=== PATIENT | male | born 1985 | race Caucasian/White ===

== ENCOUNTER 2020-02-23 11:48 | Emergency (ER) | payer OTHER ==
[2020-02-23] MEDS ORDERED: ASPIRIN 81 MG CHEW (CHILDREN'S ASA) PO ONE (12:00)
[2020-02-23] MEDS ORDERED: NS IV 1000 ML 1,000 ML ONE (12:10)
[2020-02-23 12:12] LABS: HEMOGLOBIN 14.6 G/DL (13.3-17.7); MEAN CORPUSCULAR HEMOGLOBIN 29 PG (25-34)
[2020-02-23 12:13] LABS: BASOPHILS % (AUTO) 0 % (0-10); EOSINOPHILS # (AUTO) 0.3 10^3/uL (0.0-0.3); EOSINOPHILS % (AUTO) 2 % (0-10); HEMATOCRIT 43 % (40-54); LYMPHOCYTES # (AUTO) 2.1 X 10^3 (1.0-4.0); LYMPHOCYTES % (AUTO) 14 % (12-44); MEAN CORPUSCULAR HGB CONC 34 G/DL (32-36); MEAN CORPUSCULAR VOLUME 84 FL (80-99); MEAN PLATELET VOLUME 11.4 FL (7.4-10.4); MONOCYTES % (AUTO) 7 % (0-12); NEUTROPHILS # (AUTO) 11.6 X 10^3 (1.8-7.8); NEUTROPHILS % (AUTO) 77 % (42-75); PLATELET COUNT 265 10^3/uL (130-400); RED CELL DISTRIBUTION WIDTH 12.6 % (10.0-14.5)
[2020-02-23] MEDS ORDERED: ACETAMINOPHEN 500 MG TAB (TYLENOL) PO STA (12:27)
[2020-02-23] MEDS: ACETAMINOPHEN 500 MG TAB (TYLENOL) ONE ×2 (12:28→12:29)
[2020-02-23] MEDS ORDERED: NS IV 1000 ML 1,000 ML IV SCH ×2 (12:30)
--- NOTE | 2020-02-23 12:33 | ED General ---
General Chief Complaint: Chest Pain Stated Complaint: CHEST PAIN Nursing Triage Note: Pt arrived by private vehicle with mother and child. Pt has chief complaint of chest pain, cough, shortness of breath. Also, the patient states he has had chills. Chest pain started around 100 when he was sitting at his desk eating his lunch. Pt stated pain is a 6-7, stabbing pain on right side of chest that goes into his back. Pt has history of asthma, so has chronic shortness of breath. Pt stated he has never had chest pain like this before. Pt is alert and oriented x 4. Pt was wheeled from vehicle to room 5 through decon room. Pt's vital signs were taken, IV started, EKG done. Pt has fever of 100.4. Nursing Sepsis Screen: Possible Severe Sepsis Risk Source of Information: Patient History of Present Illness Date Seen by Provider: Feb 23, 2020 Time Seen by Provider: 11:54 Initial Comments 34-year-old male presenting with complaints of right-sided chest pain and cough and shortness of breath. He states that the chest pain came on around 11 AM when he was trying to eat lunch at his desk at work. He reports the pain is around 6 or 7. It's a stabbing pain on the right side of his chest. He states that the shortness of breath is chronic and he thinks is related to his history of asthma. He denies having the chest pain before. He was having some chills since yesterday. When his temperature was checked here in the ED it was 100.5 Fahrenheit. He denies any recent travel. He denies any known ill contacts. He has no nausea or vomiting. He has no abdominal pain. Allergies and Home Medications Allergies Coded Allergies: No Known Drug Allergies (Unverified , 02/23/20) Home Medications Albuterol Sulfate 1 Puff Puff, 2 PUFF IH Q6H PRN for SHORTNESS OF BREATH 1 PUFF = 90 MCG Prescribed by: IVETH CRESPO on 02/23/20 1333 Azithromycin 250 Mg Tablet, 500 MG PO DAILY Prescribed by: IVETH CRESPO on 02/23/20 1333 Patient Home Medication List Home Medication List Reviewed: Yes Review of Systems Review of Systems Constitutional: chills, fever (found here in the ED) EENTM: no symptoms reported Respiratory: cough (non productive), short of breath (chronic with his asthma) Cardiovascular: see HPI, chest pain (right sided sharp and radiating to his back) Gastrointestinal: no symptoms reported Genitourinary: no symptoms reported Musculoskeletal: no symptoms reported Skin: no symptoms reported Psychiatric/Neurological: No Symptoms Reported Hematologic/Lymphatic: No Symptoms Reported Past [id number] Hx Past Med/Social Hx: Reviewed Nursing Past Med/Soc Hx Patient Social History Alcohol Use: Occasionally Uses Recreational Drug Use: No Smoking Status: Current Everyday Smoker Type Used: Cigarettes 2nd Hand Smoke Exposure: Yes Recent Foreign Travel: No Contact w/Someone Who Travel: No Recent Infectious Disease Expo: No Recent Hopitalizations: No Physical Abuse: No Sexual Abuse: No Mistreated: No Fear: No Seasonal Allergies Seasonal Allergies: Yes Past Medical History Surgeries: Yes Appendectomy Respiratory: Yes Asthma Cardiac: No Neurological: No Genitourinary: No Gastrointestinal: No Musculoskeletal: No Endocrine: No HEENT: No Cancer: No Psychosocial: No Integumentary: No Blood Disorders: No Physical Exam Vital Signs Vital Signs - First Documented 02/23/20 11:50 Temp 38.0 Pulse 102 Resp 28 B/P (MAP) 125/89 (101) Pulse Ox 95 O2 Delivery Room Air Capillary Refill : Less Than 3 Seconds Height, Weight, BMI Height: '" Weight: lbs. oz. kg; BMI Method: General Appearance: No Apparent Distress, WD/WN HEENT: PERRL/EOMI, Pharynx Normal Neck: Full Range of Motion, Normal Inspection, Non Tender, Supple Respiratory: Lungs Clear, No Accessory Muscle Use, No Respiratory Distress, Decreased Breath Sounds, Other (tender to palpation on right side of chest) Cardiovascular: Regular Rate, Rhythm, No Murmur, Normal Peripheral Pulses Gastrointestinal: Normal Bowel Sounds, No Organomegaly, No Pulsatile Mass, Non Tender, Soft Extremity: Normal Capillary Refill, Normal Inspection, Normal Range of Motion, Non Tender, No Calf Tenderness, No Pedal Edema Neurologic/Psychiatric: Alert, Oriented x3, No Motor/Sensory Deficits, production or plant engineer II- XII Norm as Tested Skin: Normal Color, Warm/Dry Focused Exam Lactate Level 02/23/20 12:00: Lactic Acid Level 1.07 Lactic Acid Level Laboratory Tests Test 02/23/20 12:00 Lactic Acid Level 1.07 MMOL/L (0.50-2.00) Progress/Results/Core Measures Suspected Sepsis Recent Fever Within 48 Hours: Yes Infection Criteria Present: Suspected New Infection New/Unexplained Altered Menta: No Sepsis Screen: Possible Severe Sepsis Risk SIRS Temperature: Pulse: 102 Respiratory Rate: 28 Laboratory Tests 02/23/20 11:57: White Blood Count 15.0H Blood Pressure 125 /89 Mean: 101 02/23/20 12:00: Lactic Acid Level 1.07 Laboratory Tests 02/23/20 11:57: Creatinine 1.01, INR Comment 1.1, Platelet Count 265, Total Bilirubin 0.3 Results/Orders Lab Results Laboratory Tests Test 02/23/20 11:57 02/23/20 12:00 02/23/20 12:15 Range/Units White Blood Count 15.0 H 4.3-11.0 10^3/uL Red Blood Count 5.09 4.35-5.85 10^6/uL Hemoglobin 14.6 13.3-17.7 G/DL Hematocrit 43 40-54 % Mean Corpuscular Volume 84 80-99 FL Mean Corpuscular Hemoglobin 29 25-34 PG Mean Corpuscular Hemoglobin Concent 34 32-36 G/DL Red Cell Distribution Width 12.6 10.0-14.5 % Platelet Count 265 130-400 10^3/uL Mean Platelet Volume 11.4 H 7.4-10.4 FL Neutrophils (%) (Auto) 77 H 42-75 % Lymphocytes (%) (Auto) 14 12-44 % Monocytes (%) (Auto) 7 0-12 % Eosinophils (%) (Auto) 2 0-10 % Basophils (%) (Auto) 0 0-10 % Neutrophils # (Auto) 11.6 H 1.8-7.8 X 10^3 Lymphocytes # (Auto) 2.1 1.0-4.0 X 10^3 Monocytes # (Auto) 1.0 0.0-1.0 X 10^3 Eosinophils # (Auto) 0.3 0.0-0.3 10^3/uL Basophils # (Auto) 0.0 0.0-0.1 10^3/uL Neutrophils % (Manual) 77 % Lymphocytes % (Manual) 16 % Monocytes % (Manual) 2 % Eosinophils % (Manual) 2 % Basophils % (Manual) 0 % Metamyelocytes % % Band Neutrophils 3 % Prothrombin Time 14.5 12.2-14.7 SEC INR Comment 1.1 0.8-1.4 Activated Partial Thromboplast Time 36 H 24-35 SEC Sodium Level 137 135-145 MMOL/L Potassium Level 3.9 3.6-5.0 MMOL/L Chloride Level 101 98-107 MMOL/L Carbon Dioxide Level 25 21-32 MMOL/L Anion Gap 11 5-14 MMOL/L Blood Urea Nitrogen 8 7-18 MG/DL Creatinine 1.01 0.60-1.30 MG/DL Estimat Glomerular Filtration Rate > 60 BUN/Creatinine Ratio 8 Glucose Level 95 70-105 MG/DL Calcium Level 9.1 8.5-10.1 MG/DL Corrected Calcium 8.9 8.5-10.1 MG/DL Magnesium Level 2.0 1.6-2.4 MG/DL Total Bilirubin 0.3 0.1-1.0 MG/DL Aspartate Amino Transf (AST/SGOT) 32 5-34 U/L Alanine Aminotransferase (ALT/SGPT) 31 0-55 U/L Alkaline Phosphatase 140 H 40-136 U/L Troponin I < 0.30 <0.30 NG/ML Pro-B-Type Natriuretic Peptide 30.8 <75.0 PG/ML Total Protein 7.7 6.4-8.2 GM/DL Albumin 4.3 3.2-4.5 GM/DL Lactic Acid Level 1.07 0.50-2.00 MMOL/L My Orders Orders - IVETH CRESPO MD Cbc With Automated Diff (02/23/20 11:53) Magnesium (02/23/20 11:53) Chest 1 View Ap/Pa Only (02/23/20 11:53) Ekg Tracing (02/23/20 11:53) Comprehensive Metabolic Panel (02/23/20 11:53) Protime With Inr (02/23/20 11:53) Partial Thromboplastin Time (02/23/20 11:53) O2 (02/23/20 11:53) Monitor-Rhythm Ecg Trace Only (02/23/20 11:53) Ed Iv/Invasive Line Start (02/23/20 11:53) Troponin I Fs (02/23/20 11:53) Probnp Fs (02/23/20 11:53) Aspirin Chewable Tablet (Baby Aspirin Ch (02/23/20 12:00) Manual Differential (02/23/20 11:57) Ns Iv 1000 Ml (Sodium Chloride 0.9%) (02/23/20 12:10) Ns Iv 1000 Ml (Sodium Chloride 0.9%) (02/23/20 12:30) Blood Culture (02/23/20 12:23) Lactic Acid Analyzer (02/23/20 12:23) Ns Iv 1000 Ml (Sodium Chloride 0.9%) (02/23/20 12:30) Acetaminophen Tablet (Tylenol Tablet) (02/23/20 12:24) Acetaminophen Tablet (Tylenol Tablet) (02/23/20 12:27) Coronavirus Sars-Cov-2 So 2018 (02/23/20 13:07) Ceftriaxone For Iv Use (Rocephin For I (02/23/20 13:17) Azithromycin Tablet (Zithromax Tablet) (02/23/20 13:17) Medications Given in ED Current Medications Medications Dose Ordered Sig/Lety Route Start Time Stop Time Status Last Admin Dose Admin Acetaminophen 500 mg STK-MED ONCE .ROUTE 02/23/20 12:24 02/23/20 12:27 DC 02/23/20 12:29 500 MG Aspirin 324 mg ONCE ONCE PO 02/23/20 12:00 02/23/20 12:01 DC 02/23/20 12:12 324 MG Vital Signs/I&O 02/23/20 02/23/20 11:50 13:45 Temp 38.0 36.8 Pulse 102 88 Resp 28 16 B/P (MAP) 125/89 (101) 122/76 Pulse Ox 95 99 O2 Delivery Room Air Room Air Capillary Refill : Less Than 3 Seconds Blood Pressure Mean: 101 Progress Note #1: Progress Note Electrocardiogram obtained on arrival to tenderness chest pain. This did not show any ST elevation or acute ischemic changes. Due to his fever he was treated as a possible COVID patient and remained in isolation. Labs, chest x-ray, lactic acid and blood cultures are ordered. Aspirin ordered because of the chest pain. Will give IV fluids for his tachycardia. Give acetaminophen for his elevated temperature. Progress Note #2: Time: 13:26 Progress Note Labs show elevated white blood cell count consistent with infection. His chemistry and cardiac workup are negative. His lactic acid is not elevated. His chest x-ray does demonstrate bibasilar pneumonia. Since he is maintaining his oxygen saturation will treat with antibiotics. A COVID swab is been sent and he is advised to quarantine for 2 weeks as he has a negative result. His initial treatment of Rocephin and Zithromax will be started. He will continue on Zithromax 500 mg a day for 4 additional days. He also states he follows with Dr. Tay but has not seen him recently. Will refill his albuterol inhaler so that he has medication available for his asthma. Counseled and stressed to follow-up or return immediately if he has worsening breathing or more problems. ECG Initial ECG Impression Date: Feb 23, 2020 Initial ECG Impression Time: 11:51 Initial ECG Rate: 101 Initial ECG Rhythm: S.Tach Initial ECG Comparisson: No Previous ECG Available Comment Sinus tachycardia with heart rate 101 bpm. AK interval 137 ms. QT interval 358 ms with a QTc interval 465 ms. There is no acute ST elevation. There is no prior tracing available for comparison. Diagnostic Imaging Diagonstic Imaging: Xray Plain Films/CT/US/NM/MRI: chest Comments [facility] [place] [place] NAME: GUERA VILLELA [facility] REC#: [id number] PT STATUS: REG ER : 1985 PHYSICIAN: IVETH CRESPO MD ADMIT DATE: 02/23/20/ER FS Draft Date of Exam:02/23/20 CHEST 1 VIEW AP/PA ONLY CLINICAL INDICATION: Patient with chest pain, cough, and shortness of breath. EXAM: Portable chest x-ray upright view. COMPARISONS: None. FINDINGS: There are subtle mild airspace opacities involving both lung bases (left side more than the right), concerning for lung infiltrates. The remainder of the lungs are clear. There is no pleural effusion or pneumothorax. Pulmonary vasculature and cardiac silhouettes are within normal limits. Bones show no significant abnormality. IMPRESSION: There are mild airspace opacities involving both lung bases (left side more than the right), concerning for pneumonia. Dictated on workstation # [id number] Dict: 02/23/20 1235 Trans: 02/23/20 1246 [id number] [id number] Interpreted by: DEANGELO MARTINEZ MD Electronically signed by: Reviewed: Reviewed by Me (and reviewed report from radiologist) Departure Impression Primary Impression: Basal pneumonia of both lungs Disposition: HOME, SELF-CARE Condition: Stable Departure-Patient Inst. Decision time for Depature: 13:30 Referrals: SANG TAY MD Patient Instructions: Community-Acquired Pneumonia, Adult (DC) Add. Discharge Instructions: Take the full course of antibiotics. Self Quarantine until you have results back about your Covid-19 testing. Use your inhaler for shortness of breath and wheezing. Use Acetaminophen and Ibuprofen as needed for fever and body aches. Make sure you are drinking plenty of water and fluids to stay well hydrated. You could take Mucinex over the counter to help loosen your cough and help bring up any congestion your might have in your chest as well. All discharge instructions reviewed with patient and/or family. Voiced understanding. Scripts Albuterol Sulfate (PROAIR HFA) 1 Puff Puff 2 PUFF IH Q6H PRN for SHORTNESS OF BREATH for 30 Days, #1 INHALER 0 Refills 1 PUFF = 90 MCG Prov: IVETH CRESPO MD 02/23/20 Azithromycin (Azithromycin) 250 Mg Tablet 500 MG PO DAILY for pneumonia for 4 Days, #8 TAB 0 Refills Prov: IVETH CRESPO MD 02/23/20 Work/School Note: Work Release Form Date Seen in the Emergency Department: Feb 23, 2020 Return to Work: Feb 27, 2020 Restrictions: No Restrictions Other Restrictions Listed Below: May return to work ThursdayFebruary 26 or if Covid positive Mar 08. IVETH CRESPO MD Feb 23, 2020 12:33
[2020-02-23 12:36] LABS: BAND NEUTROPHILS 3 %; BASOPHILS % (MANUAL) 0 %; EOSINOPHILS % (MANUAL) 2 %; LYMPHOCYTES % (MANUAL) 16 %; MONOCYTES % (MANUAL) 2 %; NEUTROPHILS % (MANUAL) 77 %
[2020-02-23 12:39] LABS: SODIUM 137 MMOL/L (135-145)
[2020-02-23 12:40] LABS: ALANINE AMINOTRANSFERASE 31 U/L (0-55); ALKALINE PHOSPHATASE 140 U/L (40-136); BILIRUBIN,TOTAL 0.3 MG/DL (0.1-1.0); BUN/CREATININE RATIO 8; CALCIUM 9.1 MG/DL (8.5-10.1); CARBON DIOXIDE 25 MMOL/L (21-32); CHLORIDE 101 MMOL/L (98-107); CREATININE SERUM 1.01 MG/DL (0.60-1.30); GFR ESTIMATED > 60; GLUCOSE 95 MG/DL (70-105); POTASSIUM 3.9 MMOL/L (3.6-5.0); TOTAL PROTEIN 7.7 GM/DL (6.4-8.2)
[2020-02-23 12:41] LABS: ALBUMIN 4.3 GM/DL (3.2-4.5)
[2020-02-23 12:42] LABS: INR 1.1 (0.8-1.4); PROTHROMBIN TIME PATIENT 14.5 SEC (12.2-14.7)
--- NOTE | 2020-02-23 12:47 | Diagnostic Imaging Report ---
CLINICAL INDICATION: Patient with chest pain, cough, and shortness of breath. EXAM: Portable chest x-ray upright view. COMPARISONS: None. FINDINGS: There are subtle mild airspace opacities involving both lung bases (left side more than the right), concerning for lung infiltrates. The remainder of the lungs are clear. There is no pleural effusion or pneumothorax. Pulmonary vasculature and cardiac silhouettes are within normal limits. Bones show no significant abnormality. IMPRESSION: There are mild airspace opacities involving both lung bases (left side more than the right), concerning for pneumonia. Dictated by: Dictated on workstation # [id number]
[2020-02-23] MEDS ORDERED: AZITHROMYCIN 250 MG TAB (ZITHROMAX) PO STA (13:17)
[2020-02-23] MEDS ORDERED: cefTRIAXone FOR IV USE 1,000 MG in WATER (STERILE) FOR INJECTION 10 ML IV STA (13:17)
--- OUTSIDE RECORDS SUMMARY | 2020-02-23 13:31 | XMS REPORT | Continuity of Care Document ---
Author Organization Unknown Address Unknown Phone Unavailable Allergies There is no data. Medications There is no data. Problems There is no data. Procedures There is no data. Results There is no data. Encounters ACCT No. Visit Date/Time Discharge Status Pt. Type Provider Facility Loc./Unit Complaint [id number] 02/21/2020 18:40:00 [facility]
[2020-02-23] MEDS ORDERED: AZIT250T12 PO (13:33)
[2020-02-23] MEDS ORDERED: RT-ALBUINH IH (13:33)
[2020-02-23 13:45] VITALS: BP 122/76
== END 2020-02-23 13:40 | disposition home or self-care (01) ==
LOC: ER FS 11:50
DX: J18.9 Pneumonia, unspecified organism (principal); J45.909 Unspecified asthma, uncomplicated; F17.210 Nicotine dependence, cigarettes, uncomplicated; Z20.828 Contact with and (suspected) exposure to other viral communicable diseases
CPT/HCPCS: 36415; 71045; 80053; 83605; 83735; 83880; 84484; 85007; 85027; 85610; 85730; 87040; 93041; U0002; 87635

== ENCOUNTER 2021-06-06 03:29 | Observation (INO) | payer OTHER ==
[~2021-06-06] VITALS: Ht 170 cm; Wt 62.0 kg
[~2021-06-06 03:29] MED LIST: AZIT250T12 PO; RT-ALBUINH IH
[2021-06-06] MEDS ORDERED: RT-ALBUTEROL/IPRATROPIUM 3 ML (DUONEB) VIAL INH ONE (03:45)
[2021-06-06] MEDS ORDERED: LACTATED RINGERS 1,000 ML IV ONE ×2 (03:45→06:09)
[2021-06-06] MEDS ORDERED: methylPREDNISolone 125 MG (Solu-MEDROL) VIAL IVP ONE (03:45)
--- NOTE | 2021-06-06 04:05 | ED Respiratory ---
General Chief Complaint: Respiratory Problems Stated Complaint: ASTHMA Nursing Triage Note: Pt reports feeling SOA and wheezing at 0300 today. Hx of asthma and used albuterol tx but did not have relief. Initial RA sat of 80% upon arrival to ED and pt has audible wheezing. Pt is speaking in 3-4 word sentances. Denies CP or fever. Dx with strep on Thursday. Source: patient, family Exam Limitations: no limitations History of Present Illness Date Seen by Provider: Jun 06, 2021 Time Seen by Provider: 03:34 Initial Comments 36-year-old male with past medical history of asthma coming in due to acute shortness of breath and wheezing that woke him up at 3 AM this morning. He checked his O2 sat and it was reportedly in the 70's. He trialed his albuterol inhaler once and then came to the ER. When he went to bed last night he felt normal. He says this is happened in the past and he has been admitted to the hospital in the past, with most recent a couple years ago. He says he has never been admitted to the intensive care unit and has never been intubated due to asthma. His symptoms include wheezing, tight chest, shortness of breath. Denies any cough, fever, chest pain, abdominal pain, nausea, vomiting, weakness, numbness, or any other concerns. His child did get strep throat earlier in the week and then he developed a sore throat so tested positive earlier in the week and started on amoxicillin. He says the sore throat is gone since then. He ot [facility] is denying any previous history of blood clots, heart disease, or any other concerns. The only medications he takes daily are albuterol and an Advair discus. Allergies and Home Medications Allergies Coded Allergies: No Known Drug Allergies (Unverified , 02/23/20) Patient Home Medication List Home Medication List Reviewed: Yes Albuterol Sulfate (Proair Hfa) 1 Puff Puff, 2 PUFF IH Q6H PRN for SHORTNESS OF BREATH Prescribed by: IVETH CRESPO on 02/23/20 6833 Azithromycin (Azithromycin) 250 Mg Tablet, 500 MG PO DAILY Prescribed by: IVETH CRESPO on 02/23/20 1333 Review of Systems Review of Systems Constitutional: No chills, No fever EENTM: No blurred vision Respiratory: No cough; short of breath Cardiovascular: No chest pain Gastrointestinal: No abdominal pain, No nausea, No vomiting Genitourinary: no symptoms reported Musculoskeletal: no symptoms reported Skin: no symptoms reported Psychiatric/Neurological: No Symptoms Reported Hematologic/Lymphatic: No Symptoms Reported Immunological/Allergic: no symptoms reported All Other Systems Reviewed Negative Unless Noted: Yes Past Svjpcze-Xhmsmz-Udqpeo Hx Patient Social History Tobacco Use?: No Seasonal Allergies Seasonal Allergies: Yes Past Medical History Surgeries: Yes Appendectomy Respiratory: Yes Asthma Cardiac: No Neurological: No Genitourinary: No Gastrointestinal: No Musculoskeletal: No Endocrine: No HEENT: No Cancer: No Psychosocial: No Integumentary: No Blood Disorders: No Physical Exam Vital Signs - First Documented 06/06/21 06/06/21 03:30 03:32 Pulse 87 Resp 24 B/P (MAP) 127/91 (103) Pulse Ox 80 O2 Delivery Room Air O2 Flow Rate 6.00 Capillary Refill : Less Than 3 Seconds Height: '" Weight: lbs. oz. kg; 21.00 BMI Method: General Appearance: WD/WN, mild distress HEENT: PERRL/EOMI, normal ENT inspection, pharynx normal Neck: non-tender, full range of motion, supple, normal inspection Respiratory: chest non-tender, no accessory muscle use, wheezing, expiration, inspiration Cardiovascular: regular rate, rhythm, no edema, no murmur Gastrointestinal: normal bowel sounds, non tender, soft; No distended, No guarding, No rebound Extremities: normal range of motion, non-tender, normal inspection, no pedal edema, no calf tenderness, normal capillary refill Neurologic/Psychiatric: no motor/sensory deficits, alert, normal mood/affect Skin: normal color, warm/dry Lymphatic: no adenopathy Progress/Results/Core Measures Suspected Sepsis SIRS Temperature: Pulse: 87 Respiratory Rate: 24 Laboratory Tests 06/06/21 03:40: White Blood Count 10.0 Blood Pressure 127 /91 Mean: 103 Laboratory Tests 06/06/21 03:40: Creatinine 0.94, INR Comment 1.0, Platelet Count 255, Total Bilirubin 0.2 Results/Orders Lab Results Laboratory Tests Test 06/06/21 03:40 06/06/21 04:25 Range/Units White Blood Count 10.0 4.3-11.0 10^3/uL Red Blood Count 5.34 4.30-5.52 10^6/uL Hemoglobin 15.7 13.3-17.7 g/dL Hematocrit 46 40-54 % Mean Corpuscular Volume 86 80-99 fL Mean Corpuscular Hemoglobin 29 25-34 pg Mean Corpuscular Hemoglobin Concent 34 32-36 g/dL Red Cell Distribution Width 13.3 10.0-14.5 % Platelet Count 255 130-400 10^3/uL Mean Platelet Volume 11.2 9.0-12.2 fL Immature Granulocyte % (Auto) 0 % Neutrophils (%) (Auto) 64 42-75 % Lymphocytes (%) (Auto) 19 12-44 % Monocytes (%) (Auto) 9 0-12 % Eosinophils (%) (Auto) 8 0-10 % Basophils (%) (Auto) 1 0-10 % Neutrophils # (Auto) 6.4 1.8-7.8 X 10^3 Lymphocytes # (Auto) 1.8 1.0-4.0 X 10^3 Monocytes # (Auto) 0.9 0.0-1.0 X 10^3 Eosinophils # (Auto) 0.8 H 0.0-0.3 10^3/uL Basophils # (Auto) 0.1 0.0-0.1 10^3/uL Immature Granulocyte # (Auto) 0.0 0.0-0.1 10^3/uL Prothrombin Time 13.5 12.2-14.7 SEC INR Comment 1.0 0.8-1.4 Activated Partial Thromboplast Time 33 24-35 SEC D-Dimer 0.21 0.00-0.49 UG/ML Sodium Level 139 135-145 MMOL/L Potassium Level 4.2 3.6-5.0 MMOL/L Chloride Level 104 98-107 MMOL/L Carbon Dioxide Level 25 21-32 MMOL/L Anion Gap 10 5-14 MMOL/L Blood Urea Nitrogen 7 7-18 MG/DL Creatinine 0.94 0.60-1.30 MG/DL Estimat Glomerular Filtration Rate 91 BUN/Creatinine Ratio 7 Glucose Level 105 70-105 MG/DL Calcium Level 9.0 8.5-10.1 MG/DL Corrected Calcium 8.6 8.5-10.1 MG/DL Total Bilirubin 0.2 0.1-1.0 MG/DL Aspartate Amino Transf (AST/SGOT) 21 5-34 U/L Alanine Aminotransferase (ALT/SGPT) 16 0-55 U/L Alkaline Phosphatase 95 40-136 U/L Troponin I < 0.30 <0.30 NG/ML Pro-B-Type Natriuretic Peptide 26.4 <75.0 PG/ML Total Protein 7.4 6.4-8.2 GM/DL Albumin 4.5 3.2-4.5 GM/DL My Orders Orders - TRENT OLIVO MD Chest 1 View Ap/Pa Only (06/06/21 ) Cbc With Automated Diff (06/06/21 03:45) Comprehensive Metabolic Panel (06/06/21 03:45) Protime With Inr (06/06/21 03:45) Partial Thromboplastin Time (06/06/21 03:45) Probnp Fs (06/06/21 03:45) Troponin I Fs (06/06/21 03:45) Influenza A & B Antigens (06/06/21 03:45) Ekg Tracing (06/06/21 03:45) O2 (06/06/21 03:45) Monitor-Rhythm Ecg Trace Only (06/06/21 03:45) Lactated Ringers (Lr 1000 Ml Iv Solution (06/06/21 03:45) Fibrin Degradation Products (06/06/21 03:45) Albuterol/Ipra Inhalation Soln (Duoneb I (06/06/21 03:45) Svn Small Volume Nebulizer (06/06/21 03:45) Methylprednisolone Sod Succ (Solu-Medrol (06/06/21 03:45) Magnesium 1 Gm/100 Ml Ivpb (Magnesium Marquez (06/06/21 03:45) Covid 19 Inhouse Test (06/06/21 03:45) Medications Given in ED Current Medications Medications Dose Ordered Sig/Lety Route Start Time Stop Time Status Last Admin Dose Admin Albuterol/ Ipratropium 3 ml ONCE ONCE INH 06/06/21 03:45 06/06/21 03:55 DC 06/06/21 03:58 3 ML Lactated Ringer's 1,000 ml @ 0 mls/hr Q0M ONCE IV 06/06/21 03:45 06/06/21 03:55 DC 06/06/21 04:15 999 MLS/HR Methylprednisolone Sodium Succinate 125 mg ONCE ONCE IVP 06/06/21 03:45 06/06/21 03:55 DC 06/06/21 04:00 125 MG Vital Signs/I&O 06/06/21 06/06/21 06/06/21 03:30 03:32 04:15 Pulse 87 81 Resp 24 14 B/P (MAP) 127/91 (103) 130/85 Pulse Ox 80 92 98 O2 Delivery Room Air Nasal Cannula Nasal Cannula O2 Flow Rate 6.00 3.00 Capillary Refill : Less Than 3 Seconds Blood Pressure Mean: 103 Progress Note : Progress Note 36-year-old male with above history coming in due to acutely wheezing and feeling short of breath that woke him up at 3 AM this morning. The patient was satting at lowest 80% before we put him on oxygen. On 6 L he is between 90 to 92%. He has significant inspiratory and expiratory wheezes in all lung dyer. He was completely normal yesterday when going to bed, and biggest concern would be for an acute asthma exacerbation. An IV was placed and he was given a bolus of IV fluids, IV magnesium to serve as a bronchodilator, and IV Solu-Medrol 125 mg. He was also given a DuoNeb. Basic labs including cardiac biomarkers ordered including a d-dimer given how acute this occurred. Portable chest x-ray ordered and interpreted by me showing clear lung dyer without any obvious pneumonia, no pneumothorax, and signs of obstructive airway disease with enlarged lung dyer. This seems to have come on very acutely and I have a lower suspicion for infectious etiology. Sent flu and COVID testing just to rule out completely. Labs significant for normal electrolytes, normal kidney function, negative troponin, normal BNP, normal LFTs, age-adjusted D-dimer normal. After the DuoNeb, steroids, magnesium, the patient's oxygen requirements went down drastically. He then was on 2 L to stay above 94%. I called and discussed the case with Dr. Fitzgerald who is agreeable to admit the patient under observation status to her service for further evaluation and management. We will send the patient via our [facility]. ECG Initial ECG Impression Date: Jun 06, 2021 Initial ECG Impression Time: 04:09 Initial ECG Rate: 89 Comment Narrow QRS, normal axis, no significant ST changes or T wave abnormalities Diagnostic Imaging Diagonstic Imaging: Xray Plain Films/CT/US/NM/MRI: chest Comments X-ray chest ordered and interpreted by me showing no signs of pneumonia or pneumothorax. [facility]. [place], [place] NAME: [facility] REC#: [id number] PT STATUS: REG ER : 1985 PHYSICIAN: TRENT OLIVO MD ADMIT DATE: 06/06/21/ER FS Draft Date of Exam:06/06/21 CHEST 1 VIEW AP/PA ONLY INDICATION: Respiratory problems, shortness of breath COMPARISON: 02/23/2020 TECHNIQUE: Two frontal radiographs of the chest dated 06/06/2021. FINDINGS: The cardiac silhouette is within normal limits in size. No significant pulmonary vascular congestion. The right lung is clear. Minimal blunting of the left costophrenic angle. Otherwise, the left lung appears clear. No pneumothorax. No acute osseous abnormality. IMPRESSION: Minimal blunting of the left costophrenic angle which may relate to trace pleural fluid versus pleural thickening. Dictated on workstation # [id number] Dict: 06/06/21 0359 Trans: 06/06/21 0416 RAJINDER [id number] Interpreted by: DILLON LLANOS MD Electronically signed by: Departure Impression Primary Impression: Acute asthma exacerbation Qualified Codes: J45.901 - Unspecified asthma with (acute) exacerbation Additional Impression: Person under investigation for COVID-19 Disposition: 30 STILL A PATIENT Condition: Stable Admissions Decision to Admit Reason: Admit from ER (General) Decision to Admit/Date: Jun 06, 2021 Time/Decision to Admit Time: 04:25 Departure-Patient Inst. Referrals: SANG DUVAL MD (PCP/Family) Primary Care Physician TRENT OLIVO MD Jun 06, 2021 04:05
[2021-06-06 04:11] LABS: HEMATOCRIT 46 % (40-54); HEMOGLOBIN 15.7 g/dL (13.3-17.7); MEAN CORPUSCULAR HEMOGLOBIN 29 pg (25-34); MEAN CORPUSCULAR HGB CONC 34 g/dL (32-36); MEAN CORPUSCULAR VOLUME 86 fL (80-99); MEAN PLATELET VOLUME 11.2 fL (9.0-12.2); PLATELET COUNT 255 10^3/uL (130-400)
[2021-06-06 04:12] LABS: BASOPHILS % (AUTO) 1 % (0-10); EOSINOPHILS # (AUTO) 0.8 10^3/uL (0.0-0.3); EOSINOPHILS % (AUTO) 8 % (0-10); LYMPHOCYTES # (AUTO) 1.8 X 10^3 (1.0-4.0); LYMPHOCYTES % (AUTO) 19 % (12-44); MONOCYTES # (AUTO) 0.9 X 10^3 (0.0-1.0); MONOCYTES % (AUTO) 9 % (0-12); NEUTROPHILS # (AUTO) 6.4 X 10^3 (1.8-7.8); NEUTROPHILS % (AUTO) 64 % (42-75)
[2021-06-06 04:13] LABS: BASOPHILS # (AUTO) 0.1 10^3/uL (0.0-0.1)
[2021-06-06] MEDS: MAGNESIUM 1 GM/100 ML IVPB 100 ML IV SCH ×2 (04:15→05:00)
--- NOTE | 2021-06-06 04:18 | Diagnostic Imaging Report ---
INDICATION: Respiratory problems, shortness of breath COMPARISON: 02/23/2020 TECHNIQUE: Two frontal radiographs of the chest dated 06/06/2021. FINDINGS: The cardiac silhouette is within normal limits in size. No significant pulmonary vascular congestion. The right lung is clear. Minimal blunting of the left costophrenic angle. Otherwise, the left lung appears clear. No pneumothorax. No acute osseous abnormality. IMPRESSION: Minimal blunting of the left costophrenic angle which may relate to trace pleural fluid versus pleural thickening. Dictated by: Dictated on workstation # [id number]
[2021-06-06 04:21] LABS: FIBRIN DEGRADATION PRODUCTS 0.21 UG/ML (0.00-0.49)
[2021-06-06 04:22] LABS: PROTHROMBIN TIME PATIENT 13.5 SEC (12.2-14.7)
[2021-06-06 04:26] LABS: CHLORIDE 104 MMOL/L (98-107); POTASSIUM 4.2 MMOL/L (3.6-5.0); SODIUM 139 MMOL/L (135-145)
[2021-06-06 04:27] LABS: ALANINE AMINOTRANSFERASE 16 U/L (0-55); ALBUMIN 4.5 GM/DL (3.2-4.5); ALKALINE PHOSPHATASE 95 U/L (40-136); BILIRUBIN,TOTAL 0.2 MG/DL (0.1-1.0); BUN/CREATININE RATIO 7; CARBON DIOXIDE 25 MMOL/L (21-32); CREATININE SERUM 0.94 MG/DL (0.60-1.30); GFR ESTIMATED 91; GLUCOSE 105 MG/DL (70-105); TOTAL PROTEIN 7.4 GM/DL (6.4-8.2)
[2021-06-06] MEDS ORDERED: RT-ALBUTEROL SULF 2.5 MG/3 ML PRE-MIX VIAL IH PRN (06:15)
[2021-06-06 06:21] VITALS: BP 130/84
[2021-06-06] MEDS: LACTATED RINGERS 1,000 ML IV SCH ×2 (06:22→13:35)
[2021-06-06 06:46] VITALS: BP 130/84
[2021-06-06] MEDS ORDERED: RT-ALBUTEROL SULF 2.5 MG/3 ML PRE-MIX VIAL INH PRN (07:00)
[2021-06-06] MEDS ORDERED: FLU QUADRIvalent (3YOA+) 60 mcg/0.5 ml 2021-22(AFLURIA) IM ONE (07:00)
[2021-06-06 08:00] VITALS: BP 127/80
[2021-06-06] MEDS: RT-ALBUTEROL/IPRATROPIUM 3 ML (DUONEB) VIAL INH SCH ×4 (11:00→22:01)
[2021-06-06] MEDS ORDERED: AMOX875T2 PO (11:12)
[2021-06-06] MEDS ORDERED: FLUT1DIS26 IH (11:12)
[2021-06-06] MEDS ORDERED: RT-ALBUINH IH (11:12)
[2021-06-06] MEDS ORDERED: ALBU2.5V4 NEB (11:12)
[2021-06-06 11:50] VITALS: BP 121/71
[2021-06-06] MEDS ORDERED: AMOXICILLIN 500 MG (POLYMOX) CAP PO STA (13:02)
[2021-06-06] MEDS ORDERED: AMOXICILLIN 500 MG (POLYMOX) CAP PO SCH (13:05)
[2021-06-06] MEDS: AMOXICILLIN 500 MG (POLYMOX) CAP PO SCH ×2 (13:35→20:53)
[2021-06-06 16:00] VITALS: BP 125/74
--- NOTE | 2021-06-06 18:56 | History & Physical ---
HPI History of Present Illness: 36 yo M with known asthma that was brought to ER with increasing shortness of breath and wheezing. States that he had been having a harder time breathing for the last 3 days and was using albuterol inhaler alot more this past week. Denies any fevers or chills or any sick contacts. Patient states that he was admitted a round the same time last year. Denies ever needing to be intubated for his asthma. States that he has been a smoker and he is wanting to stop. Source: patient, mother Exam Limitations: no limitations Date seen by provider: Jun 06, 2021 Time Seen by Provider: 10:00 Attending Physician Jamie Fitzgerald MD PCP SelfTerry MD Consult Date of Admission Jun 06, 2021 at 05:40 Home Medications Home Medications Reviewed patient Home Medication Reconciliation performed by pharmacy medication reconciliations plant health care technician and/or nursing. Patients Allergies have been reviewed. Allergies Coded Allergies: No Known Drug Allergies (Unverified , 02/23/20) MSH-Gdhfjr-Jdviiv Hx Patient Social History Smoking Status: Current Everyday Smoker 2nd Hand Smoke Exposure: Yes Recent Hopitalizations: No Alcohol Use?: No Tobacco type used: Cigarettes Have you traveled recently?: No Past Medical History Asthma Tobacco Abuse Family Medical History Significant Family History: No Pertinent Family Hx Review of Systems ([facility]) Constitutional: no symptoms reported; No chills, No fever EENTM: no symptoms reported, throat pain; No nose congestion Respiratory: cough, dyspnea on exertion, short of breath Cardiovascular: no symptoms reported; No chest pain, No edema, No palpitations Gastrointestinal: no symptoms reported; No abdominal pain, No constipation, No diarrhea, No nausea, No vomiting Genitourinary: no symptoms reported; No dysuria, No frequency, No hematuria Musculoskeletal: no symptoms reported; No back pain, No joint pain, No muscle pain Skin: no symptoms reported; No lesions, No rash Psychiatric/Neurological: No Symptoms Reported Reviewed Test Results Reviewed Test Results Lab Laboratory Tests Test 06/06/21 03:40 06/06/21 04:25 Range/Units White Blood Count 10.0 4.3-11.0 10^3/uL Red Blood Count 5.34 4.30-5.52 10^6/uL Hemoglobin 15.7 13.3-17.7 g/dL Hematocrit 46 40-54 % Mean Corpuscular Volume 86 80-99 fL Mean Corpuscular Hemoglobin 29 25-34 pg Mean Corpuscular Hemoglobin Concent 34 32-36 g/dL Red Cell Distribution Width 13.3 10.0-14.5 % Platelet Count 255 130-400 10^3/uL Mean Platelet Volume 11.2 9.0-12.2 fL Immature Granulocyte % (Auto) 0 % Neutrophils (%) (Auto) 64 42-75 % Lymphocytes (%) (Auto) 19 12-44 % Monocytes (%) (Auto) 9 0-12 % Eosinophils (%) (Auto) 8 0-10 % Basophils (%) (Auto) 1 0-10 % Neutrophils # (Auto) 6.4 1.8-7.8 X 10^3 Lymphocytes # (Auto) 1.8 1.0-4.0 X 10^3 Monocytes # (Auto) 0.9 0.0-1.0 X 10^3 Eosinophils # (Auto) 0.8 H 0.0-0.3 10^3/uL Basophils # (Auto) 0.1 0.0-0.1 10^3/uL Immature Granulocyte # (Auto) 0.0 0.0-0.1 10^3/uL Prothrombin Time 13.5 12.2-14.7 SEC INR Comment 1.0 0.8-1.4 Activated Partial Thromboplast Time 33 24-35 SEC D-Dimer 0.21 0.00-0.49 UG/ML Sodium Level 139 135-145 MMOL/L Potassium Level 4.2 3.6-5.0 MMOL/L Chloride Level 104 98-107 MMOL/L Carbon Dioxide Level 25 21-32 MMOL/L Anion Gap 10 5-14 MMOL/L Blood Urea Nitrogen 7 7-18 MG/DL Creatinine 0.94 0.60-1.30 MG/DL Estimat Glomerular Filtration Rate 91 BUN/Creatinine Ratio 7 Glucose Level 105 70-105 MG/DL Calcium Level 9.0 8.5-10.1 MG/DL Corrected Calcium 8.6 8.5-10.1 MG/DL Total Bilirubin 0.2 0.1-1.0 MG/DL Aspartate Amino Transf (AST/SGOT) 21 5-34 U/L Alanine Aminotransferase (ALT/SGPT) 16 0-55 U/L Alkaline Phosphatase 95 40-136 U/L Troponin I < 0.30 <0.30 NG/ML Pro-B-Type Natriuretic Peptide 26.4 <75.0 PG/ML Total Protein 7.4 6.4-8.2 GM/DL Albumin 4.5 3.2-4.5 GM/DL Influenza Type A Antigen NEGATIVE NEGATIVE Influenza Type B Antigen NEGATIVE NEGATIVE SARS-CoV-2 RNA (RT-PCR) Not Detected Not Detecte Physical Exam-([facility]) Physical Exam Vital Signs VS - Last 72 Hours, by Label 06/06/21 06/06/21 06/06/21 06/06/21 03:30 03:32 04:15 04:30 Pulse 87 81 89 Resp 24 14 16 B/P (MAP) 127/91 (103) 130/85 126/83 Pulse Ox 80 92 98 O2 Delivery Room Air Nasal Cannula Nasal Cannula Room Air O2 Flow Rate 6.00 3.00 2.00 06/06/21 06/06/21 06/06/21 06/06/21 04:45 06:13 06:21 06:46 Temp 36.6 36.6 Pulse 81 81 81 Resp 14 20 B/P (MAP) 127/85 130/84 (99) Pulse Ox 95 94 94 O2 Delivery Room Air Room Air Room Air FiO2 21 06/06/21 06/06/21 06/06/21 06/06/21 07:00 08:00 08:00 11:00 Temp 36.7 Pulse 78 90 Resp 20 B/P (MAP) 127/80 (96) Pulse Ox 93 92 O2 Delivery Room Air Room Air Room Air 06/06/21 06/06/21 06/06/21 06/06/21 11:50 13:00 14:39 16:00 Temp 36.8 36.9 Pulse 101 93 116 Resp 20 18 B/P (MAP) 121/71 (88) 125/74 (91) Pulse Ox 92 90 95 O2 Delivery Room Air Room Air Room Air 06/06/21 18:30 Pulse Ox 92 O2 Delivery Room Air Capillary Refill : Less Than 3 Seconds General Appearance: WD/WN, no apparent distress HEENT: PERRL/EOMI Neck: non-tender, full range of motion, supple Respiratory: chest non-tender, no respiratory distress, no accessory muscle use, wheezing, expiration Cardiovascular: normal peripheral pulses, regular rate, rhythm, no edema, no murmur Gastrointestinal: normal bowel sounds, non tender, soft, no organomegaly Back: no CVA tenderness, no vertebral tenderness Extremities: normal range of motion, non-tender, normal inspection, no pedal edema, no calf tenderness, normal capillary refill Neurologic/Psychiatric: resource specialist teacher II-XII nml as tested, no motor/sensory deficits, alert, normal mood/affect, oriented x 3 Skin: normal color, warm/dry Lymphatic: no adenopathy Assessment/Plan Assessment/Plan Admission Status: Observation (1) Acute asthma exacerbation Status: Acute Assessment & Plan: - MAT protocol, continue steroids, RA currently, likely home in the AM Qualifiers: Qualified Codes: J45.901 - Unspecified asthma with (acute) exacerbation JAMIE FITZGERALD MD Jun 06, 2021 18:56
[2021-06-06 20:00] VITALS: BP 118/61
[2021-06-07] VITALS: BP 110/70
[2021-06-07] MEDS: RT-ALBUTEROL/IPRATROPIUM 3 ML (DUONEB) VIAL INH SCH ×2 (03:09→06:40)
[2021-06-07 04:06] VITALS: BP 111/70
[2021-06-07 08:00] VITALS: BP 131/81
[2021-06-07] MEDS: AMOXICILLIN 500 MG (POLYMOX) CAP PO SCH (09:33)
--- NOTE | 2021-06-07 09:38 | Discharge Summary ---
Diagnosis/Chief Complaint Date of Admission Jun 06, 2021 at 05:40 Date of Discharge Discharge Diagnosis Problems/Diagnosis: (1) Acute asthma exacerbation Assessment & Plan: - MAT protocol, continue steroids, RA currently, likely home in the AM Qualifiers: Qualified Codes: J45.901 - Unspecified asthma with (acute) exacerbation Status: Acute Chief Complaint/HPI Chief Complaint/HPI 36 yo M with known asthma that was brought to ER with increasing shortness of breath and wheezing. States that he had been having a harder time breathing for the last 3 days and was using albuterol inhaler alot more this past week. Denies any fevers or chills or any sick contacts. Patient states that he was admitted around the same time last year. Denies ever needing to be intubated for his asthma. States that he has been a smoker and he is wanting to stop. Discharge Summary-Simple/Stand Consultations Discharge Physical Examination Allergies: Coded Allergies: No Known Drug Allergies (Unverified , 02/23/20) Vitals & I&Os Vital Sign - Last 12Hours Date Time Temp Pulse Resp B/P (MAP) Pulse Ox O2 Delivery O2 Flow Rate FiO2 06/07/21 08:00 36.6 101 18 131/81 (98) 96 Room Air 06/06/21 06:46 21 06/06/21 04:30 2.00 Intake and Output 06/07/21 00:00 Intake Total 2060 ml Balance 2060 ml Hospital Course See final discharge diagnosis. Discharge Instructions to patient/family Please see electronic discharge instructions given to patient. Discharge Medications Reviewed and agree with Discharge Medication list on patient's Discharge Instruction sheet JAMIE ANGUIANO MD Jun 07, 2021 09:38
[2021-06-07] MEDS ORDERED: PRD20T PO (09:42)
--- NOTE | 2021-06-07 09:44 | Discharge Summary ---
Discharge [facility] Reconcile Patient Problems Problems Reviewed?: Yes Discharge Medications New, Converted or Re-Newed RX: Transmitted to Pharmacy New Medications: Prednisone (Prednisone) 20 Mg Tab 40 TAB PO DAILY for 5 Days, #10 TAB Continued Medications: Albuterol Sulfate (Albuterol Sulfate) 2.5 Mg/3 Ml Vial.neb 3 ML NEB Q6H PRN for SHORTNESS OF BREATH, EA Albuterol Sulfate (Proair Hfa) 1 Puff Puff 2 PUFF IH Q4H PRN for SHORTNESS OF BREATH, EA Amoxicillin (Amoxicillin) 875 Mg Tablet 875 MG PO BID, TAB FILLED 06-04-2021 #20/10 DAY SUPPLY Fluticasone/Salmeterol (Advair 250-50 Diskus) 1 Each Blst.w.dev 1 EACH IH BID Patient Instructions Goal/Follow Up Appt: F.u with Dr Tay in 1-2 weeks Activity & Diet Discharge Diet: No Restrictions Activity as Tolerated: Yes JAMIE ANGUIANO MD Jun 07, 2021 09:44
[2021-06-07 10:41] VITALS: BP 131/81
== END 2021-06-07 10:44 | disposition home or self-care (01) ==
LOC: EDUNIT# 03:29 → ER FS 03:30 → 4TH 05:40
PROVIDERS: ADMIT Family Medicine; ATTEND Family Medicine
DX: J45.901 Unspecified asthma with (acute) exacerbation (principal); F17.210 Nicotine dependence, cigarettes, uncomplicated; Z79.899 Other long term (current) drug therapy; Z90.89 Acquired absence of other organs
CPT/HCPCS: 36415; 71045; 80053; 83880; 84484; 85025; 85379; 85610; 85730; 87636; 87804; 93005; 93041; 94640; 94760; 96374; 96375; G0378